=== PATIENT | female | born 1940 | race Two or more races ===

== ENCOUNTER 2023-10-16 12:24 | Outpatient (AMB) | payer MEDICARE, BC, SELFPAY ==
[2023-10-16 12:34] VITALS: BP 132/60; PULSE 48; O2SAT 98; BMI 26.6
--- NOTE | 2023-10-16 12:34 | HO.NEPHOV ---
HPI HPI Comments History of Present Illness Details I had the privilege of seeing Gilma in follow-up of her chronic kidney disease and hypertension. Her blood pressure has been at goal. She has been getting recurrent urinary symptoms but culture negativity. She has not undergone a cystoscopy. She is looking forward to see a urologist. She denies nausea, vomiting, diarrhea, pedal edema, hematuria, fever, chills, rigors, orthopnea or proximal nocturnal dyspnea. She claims to be compliant with her medications, low-sodium diet and good in maintaining hydration. She closely follows up with primary care physician. [facility] Medical History (Updated 10/27/23 @ 22:41 by Darin Lew MD) Hypertension Chronic kidney disease Surgical History (Updated 10/16/23 @ 12:40 by Jyoti Fallon MA) History of ear surgery History of hysterectomy H/O hernia repair Family History (Updated 10/16/23 @ 12:41 by Jyoti Fallon MA) Father Lung cancer Sister Breast cancer Social History (Updated 10/16/23 @ 12:40 by Jyoti Fallon MA) Alcohol intake: never Patient Tobacco Use Status: Former Tobacco user Vital Signs 10/16/23 12:34 Height 4 ft 11 in Weight 131 lb 8 oz BMI 26.6 BP 132/60 Blood Pressure Location Lt brachial Position Sitting Pulse 48 L Pulse Source Pulse Oximeter Pulse Oximetry (%) 98 Oxygen Delivery Method Room Air Physical Exam Vital Signs: Last Vital Signs Pulse 48 L 10/16/23 12:34 BP 132/60 10/16/23 12:34 Pulse Ox 98 10/16/23 12:34 Oxygen Delivery Method Room Air 10/16/23 12:34 BMI result Body Mass Index 26.6 Const General: comfortable and no acute distress Orientation/consciousness: patient oriented x3 HEENT Head: Yes normocephalic Mouth: Normal oral and palatal mucosa present Eyes EOM: EOMs intact bilaterally Neck Neck: Yes supple Resp Auscultation: clear to auscultation bilaterally Cardio Jugular venous distension: no JVD Rate: regular rate GI Palpation (GI): Soft to palpation Auscultation: normal bowel sounds General: Yes no CVA tenderness Back/Spine/Pelvis Back: no CVA tenderness Skin General skin exam: no rashes or lesions noted Neuro General: patient oriented x3 and moves all extremities Extrem General: Yes no pedal edema Assessment & Plan Assessment & Plan (1) Dysuria: Code(s): R30.0 - Dysuria (2) Hyperkalemia: Code(s): E87.5 - Hyperkalemia (3) CKD (chronic kidney disease) stage 3, GFR 30-59 ml/min: Code(s): N18.30 - Chronic kidney disease, stage 3 unspecified Qualifiers: Chronic kidney disease stage 3 subtype: stage 3a (GFR 45-59) Qualified Code(s): N18.31 - Chronic kidney disease, stage 3a (4) Hypertension: Code(s): I10 - Essential (primary) hypertension Qualifiers: Hypertension type: primary hypertension Qualified Code(s): I10 - Essential (primary) hypertension Plan Clear has stage III CKD. 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 She has renal cysts. She has hypertension which is currently well controlled on angiotensin receptor yisel. Her blood pressure has been at goal. She avoids nonsteroidal anti-inflammatory medications, minimize sodium in the diet and maintain good hydration. I did not make any other changes today. Follow-up blood work ordered. She could be a candidate for Jardiance or Farxiga in the future. All questions answered. Follow-up appointment given. Orders: Orders Creatinine 10/16/23 R30.0 - Dysuria, E87.5 - Hyperkalemia, N18.30 - Chronic kidney disease, stage 3 unspecified, I10 - Essential (primary) hypertension Urine Culture 10/16/23 R30.0 - Dysuria, E87.5 - Hyperkalemia, N18.30 - Chronic kidney disease, stage 3 unspecified, I10 - Essential (primary) hypertension Blood Urea Nitrogen 10/16/23 R30.0 - Dysuria, E87.5 - Hyperkalemia, N18.30 - Chronic kidney disease, stage 3 unspecified, I10 - Essential (primary) hypertension Electrolytes 10/16/23 R30.0 - Dysuria, E87.5 - Hyperkalemia, N18.30 - Chronic kidney disease, stage 3 unspecified, I10 - Essential (primary) hypertension Medications: New losartan 50 mg PO DAILY 90 tabs 3RF 90 days Coding Level of Care Code Est Pt Level 4 (21816) Diagnoses Dysuria R30.0 Hyperkalemia E87.5 Stage 3a chronic kidney disease N18.31 Chronic kidney disease stage 3 subtype: stage 3a (GFR 45-59) Primary hypertension I10 Hypertension type: primary hypertension Results Reviewed Nephrology Results: No Data to Display
== END 2023-10-16 13:44 | disposition home or self-care (01) ==
PROVIDERS: PCP Internal Medicine; Visit Provider Internal Medicine Nephrology
DX: R30.0 Dysuria (principal); E87.5 Hyperkalemia; N18.31 Chronic kidney disease, stage 3a; I10 Essential (primary) hypertension
CPT/HCPCS: 99214

== ENCOUNTER → 2023-10-16 12:24 | Outpatient (BNVA) | payer MEDICARE, BC, SELFPAY | PROVIDERS: PCP Internal Medicine; Visit Provider Internal Medicine Nephrology | DX: I12.9 Hypertensive chronic kidney disease with stage 1 through stage 4 chronic kidney disease, or unspecified chronic kidney disease (principal); N18.31 Chronic kidney disease, stage 3a; E78.5 Hyperlipidemia, unspecified; R30.0 Dysuria | CPT/HCPCS: 99212 ==

== ENCOUNTER 2024-03-11 14:11 | Outpatient (AMB) | payer MEDICARE, SELFPAY ==
[2024-03-11 14:20] VITALS: BP 126/50; PULSE 48; O2SAT 98; BMI 26.7
--- NOTE | 2024-03-11 14:20 | HO.NEPHOV_ITS ---
Vital Signs 03/11/24 14:20 Height 4 ft 11 in Weight 132 lb BMI 26.7 BP 126/50 L Blood Pressure Location Rt brachial Position Sitting Pulse 48 L Pulse Source Pulse Oximeter Pulse Oximetry (%) 98 Oxygen Delivery Method Room Air Intake Visit Reasons: 3 Months/ Confirmed Necktie Turner Required: No Accompanied by: Self / Same As Patient Allergies triamcinolone [From Kenalog] Allergy (Verified 03/11/24 14:24) Anaphylaxis HPI Comments Details: I had the privilege of seeing Gilma in follow-up of her chronic kidney disease and hypertension. Her blood pressure has been at goal. She has not undergone a cystoscopy even though she had been having recurrent UTI with culture ne gativity. She denies nausea, vomiting, diarrhea, pedal edema, hematuria, fever, chills, rigors, orthopnea or proximal nocturnal dyspnea. She claims to be compliant with her medications, low-sodium diet and good in maintaining hydration. She recently had incisional hernia repair. She closely follows up with primary care physician. [facility] Medical History (Updated 10/27/23 @ 22:41 by Darin Lew MD) Hypertension Chronic kidney disease Surgical History (Updated 10/16/23 @ 12:40 by Jyoti Fallon MA) History of ear surgery History of hysterectomy H/O hernia repair Family History (Updated 10/16/23 @ 12:41 by Jyoti Fallon MA) Father Lung cancer Sister Breast cancer Social History (Updated 10/16/23 @ 12:40 by Jyoti Fallon MA) Alcohol intake: never Patient Tobacco Use Status: Former Tobacco user Physical Exam Const General: comfortable and no acute distress Orientation/consciousness: patient oriented x3 HEENT Head: Yes normocephalic Mouth: Normal oral and palatal mucosa present Eyes EOM: EOMs intact bilaterally Neck Neck: Yes supple Resp Auscultation: clear to auscultation bilaterally Cardio Jugular venous distension: no JVD Rate: regular rate GI Palpation (GI): Soft to palpation Auscultation: normal bowel sounds General: Yes no CVA tenderness Back/Spine/Pelvis Back: no CVA tenderness Skin General skin exam: no rashes or lesions noted Neuro General: patient oriented x3 and moves all extremities Extrem General: Yes no pedal edema Results Reviewed Nephrology Results: No Data to Display Assessment & Plan Assessment & Plan (1) CKD (chronic kidney disease) stage 3, GFR 30-59 ml/min: Code(s): N18.30 - Chronic kidney disease, stage 3 unspecified Category: Medical Qualifiers: Chronic kidney disease stage 3 subtype: stage 3a (GFR 45-59) Qualified Code(s): N18.31 - Chronic kidney disease, stage 3a (2) Hypertension: Code(s): I10 - Essential (primary) hypertension Category: Medical Qualifiers: Hypertension type: primary hypertension Qualified Code(s): I10 - Essential (primary) hypertension (3) Hyperkalemia: Code(s): E87.5 - Hyperkalemia Category: Medical Plan Gilma has stage III CKD. 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 She has renal cysts. She has hypertension which is currently well controlled on angiotensin receptor yisel. Her blood pressure has been at goal. She avoids nonsteroidal anti-inflammatory medications, minimize sodium in the diet and maintain good hydration. I did not make any other changes today. Follow-up blood work ordered. All questions answered. Follow-up appointment given Orders: Orders Creatinine Today E87.5 - Hyperkalemia, I10 - Essential (primary) hypertension, N18.31 - Chronic kidney disease, stage 3a Parathyroid Hormone Intact Today E87.5 - Hyperkalemia, I10 - Essential (primar y) hypertension, N18.31 - Chronic kidney disease, stage 3a Phosphorus Today E87.5 - Hyperkalemia, I10 - Essential (primary) hypertension, N18.31 - Chronic kidney disease, stage 3a Blood Urea Nitrogen Today E87.5 - Hyperkalemia, I10 - Essential (primary) hypertension, N18.31 - Chronic kidney disease, stage 3a Electrolytes Today E87.5 - Hyperkalemia, I10 - Essential (primary) hypertension, N18.31 - Chronic kidney disease, stage 3a Calcium Today E87.5 - Hyperkalemia, I10 - Essential (primary) hypertension, N18.31 - Chronic kidney disease, stage 3a Coding Level of Care Code Est Pt Level 4 (34558) Diagnoses Stage 3a chronic kidney disease N18.31 Chronic kidney disease stage 3 subtype: stage 3a (GFR 45-59) Primary hypertension I10 Hypertension type: primary hypertension Hyperkalemia E87.5
== END 2024-03-11 14:44 | disposition home or self-care (01) ==
PROVIDERS: PCP Internal Medicine; Visit Provider Internal Medicine Nephrology
DX: N18.31 Chronic kidney disease, stage 3a (principal); I10 Essential (primary) hypertension; E87.5 Hyperkalemia
CPT/HCPCS: 99214

== ENCOUNTER → 2024-03-11 14:11 | Outpatient (BNVA) | payer OTHER, MEDICARE, SELFPAY | PROVIDERS: PCP Internal Medicine; Visit Provider Internal Medicine Nephrology ==

== ENCOUNTER 2024-09-14 11:43 | Outpatient (AMB) | payer MEDICARE, SELFPAY ==
--- NOTE | 2024-09-14 11:52 | HO.NEPHOV ---
Vital Signs 09/14/24 11:53 Height 4 ft 11 in Weight 125 lb 2 oz BMI 25.3 BP 152/58 H Blood Pressure Location Lt brachial Position Sitting Pulse 46 L Pulse Source Pulse Oximeter Pulse Oximetry (%) 98 Oxygen Delivery Method Room Air Intake Visit Reasons: 6 mon follow up-[facility] Track Laying Equipment Operator Required: No Accompanied by: Daughter Allergies triamcinolone [From Kenalog] Allergy (Verified 09/14/24 11:53) Anaphylaxis HPI Comments Details: Gilma was seen in follow-up of her chronic kidney disease and hypertension. Her blood pressure has been at goal. She has not undergone a cystoscopy even though she had been having recurrent UTI with culture negativity. She denies nausea, vomiting, diarrhea, pedal edema, hematuria, fever, chills, rigors, orthopnea or proximal nocturnal dyspnea. She claims to be compliant with her medications, low-sodium diet and good in maintaining hydration. She recently had incisional hernia repair. She closely follows up with primary care physician [facility] Medical History (Updated 10/27/23 @ 22:41 by Darin Lew MD) Hypertension Chronic kidney disease Surgical History History of ear surgery History of hysterectomy H/O hernia repair Family History Father Lung cancer Sister Breast cancer Social History Alcohol intake: never Patient Tobacco Use Status: Former Tobacco user Review of Systems Const All systems reviewed & are unremarkable except as noted in HPI and below Physical Exam Vital Signs: Last Vital Signs Pulse 46 L 09/14/24 11:53 BP 152/58 H 09/14/24 11:53 Pulse Ox 98 09/14/24 11:53 Oxygen Delivery Method Room Air 09/14/24 11:53 BMI result Body Mass Index 25.3 Const General: comfortable and no acute distress Orientation/consciousness: patient oriented x3 HEENT Head: Yes normocephalic Mouth: Normal oral and palatal mucosa present Eyes EOM: EOMs intact bilaterally Neck Neck: Yes supple Resp Auscultation: clear to auscultation bilaterally Cardio Jugular venous distension: no JVD Rate: regular rate GI Palpation (GI): Soft to palpation Auscultation: normal bowel sounds General: Yes no CVA tenderness Back/Spine/Pelvis Back: no CVA tenderness Skin General skin exam: no rashes or lesions noted Neuro General: patient oriented x3 and moves all extremities Extrem General: Yes no pedal edema Results Reviewed Nephrology Results: No Data to Display Assessment & Plan Assessment & Plan (1) CKD (chronic kidney disease) stage 3, GFR 30-59 ml/min: Code(s): N18.30 - Chronic kidney disease, stage 3 unspecified Category: Medical Qualifiers: Chronic kidney disease stage 3 subtype: stage 3a (GFR 45-59) Qualified Code(s): N18.31 - Chronic kidney disease, stage 3a (2) Hypertension: Code(s): I10 - Essential (primary) hypertension Category: Medical Qualifiers: Hypertension type: primary hypertension Qualified Code(s): I10 - Essential (primary) hypertension Plan Gilma has stage III CKD. 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 She has renal cysts. She has hypertension which is currently well controlled on angiotensin receptor yisel. Her blood pressure needs to be kept at goal. She avoids nonsteroidal anti-inflammatory medications, minimize sodium in the diet and maintain good hydration. I did not make any other changes today. Follow-up blood work ordered. All questions answered. Follow-up appointment given Orders: Orders Blood Urea Nitrogen 6 Months I10 - Essential (primary) hypertension, N18.31 - Chronic kidney disease, stage 3a Electrolytes 6 Months I10 - Essential (primary) hypertension, N18.31 - Chronic kidney disease, stage 3a Creatinine 6 Months I10 - Essential (primary) hypertension, N18.31 - Chronic kidney disease, stage 3a Coding Level of Care Code Est Pt Level 4 (11886) Diagnoses Stage 3a chronic kidney disease N18.31 Chronic kidney disease stage 3 subtype: stage 3a (GFR 45-59) Primary hypertension I10 Hypertension type: primary hypertension
[2024-09-14 11:53] VITALS: BP 152/58; PULSE 46; O2SAT 98; BMI 25.3
== END 2024-09-14 12:30 | disposition home or self-care (01) ==
LOC: HO.HKAS 11:43
PROVIDERS: PCP Internal Medicine; Visit Provider Internal Medicine Nephrology
DX: N18.31 Chronic kidney disease, stage 3a (principal); I10 Essential (primary) hypertension
CPT/HCPCS: 99214

== ENCOUNTER → 2024-09-14 11:43 | Outpatient (BNVA) | payer OTHER, MEDICARE, SELFPAY | PROVIDERS: PCP Internal Medicine; Visit Provider Internal Medicine Nephrology ==

== ENCOUNTER 2025-04-12 14:02 | Outpatient (AMB) | payer MEDICARE, SELFPAY ==
--- NOTE | 2025-04-12 14:34 | HO.NEPHOV ---
Vital Signs 04/12/25 14:35 Height 4 ft 11 in Weight 118 lb 4 oz BMI 23.9 BP 140/50 H Blood Pressure Location Rt brachial Position Sitting Pulse 42 L Pulse Source Pulse Oximeter Pulse Oximetry (%) 97 Oxygen Delivery Method Room Air Intake Visit Reasons: 6mon follow up-[facility] Axle Inspector Required: No Accompanied by: Daughter Allergies triamcinolone (From Kenalog) Allergy (Verified 04/12/25 14:35) Anaphylaxis HPI Comments Details: Gilma was seen in follow-up of her chronic kidney disease and hypertension. Her blood pressure has been at goal. She has not undergone a cystoscopy even though she had been having recurrent UTI with culture negativity. She denies nausea, vomiting, diarrhea, pedal edema, hematuria, fever, chills, rigors, orthopnea or proximal nocturnal dyspnea. She claims to be compliant with her medications, low-sodium diet and good in maintaining hydration. She has lost weight [facility] Medical History (Updated 10/27/23 @ 22:41 by Darin Lew MD) Hypertension Chronic kidney disease Surgical History History of ear surgery History of hysterectomy H/O hernia repair Family History Father Lung cancer Sister Breast cancer Social History Alcohol intake: never Patient Tobacco Use Status: Former Tobacco user Review of Systems Const All systems reviewed & are unremarkable except as noted in HPI and below Physical Exam Vital Signs: Last Vital Signs Pulse 42 L 04/12/25 14:35 BP 140/50 H 04/12/25 14:35 Pulse Ox 97 04/12/25 14:35 Oxygen Delivery Method Room Air 04/12/25 14:35 BMI result Body Mass Index 23.9 Const General: comfortable and no acute distress Orientation/consciousness: patient oriented x3 HEENT Head: Yes normocephalic Mouth: Normal oral and palatal mucosa present Eyes EOM: EOMs intact bilaterally Neck Neck: Yes supple Resp Auscultation: clear to auscultation bilaterally Cardio Jugular venous distension: no JVD Rate: regular rate GI Palpation (GI): Soft to palpation Auscultation: normal bowel sounds General: Yes no CVA tenderness Back/Spine/Pelvis Back: no CVA tenderness Skin General skin exam: no rashes or lesions noted Neuro General: patient oriented x3 and moves all extremities Extrem General: Yes no pedal edema Assessment & Plan Assessment & Plan (1) CKD (chronic kidney disease) stage 3, GFR 30-59 ml/min: Code(s): N18.30 - Chronic kidney disease, stage 3 unspecified Category: Medical Qualifiers: Chronic kidney disease stage 3 subtype: stage 3a (GFR 45-59) Qualified Code(s): N18.31 - Chronic kidney disease, stage 3a (2) Hypertension: Code(s): I10 - Essential (primary) hypertension Category: Medical Qualifiers: Hypertension type: primary hypertension Qualified Code(s): I10 - Essential (primary) hypertension Plan Gilma has stage III CKD. 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 She has renal cysts. She has hypertension which is currently well controlled at home on angiotensin receptor yisel. She avoids nonsteroidal anti-inflammatory medications, minimize sodium in the diet and maintain good hydration. I did not make any other changes today. Follow-up blood work ordered. All questions answered. Coding Level of Care Code Est Pt Level 4 (65796) Diagnoses Stage 3a chronic kidney disease N18.31 Chronic kidney disease stage 3 subtype: stage 3a (GFR 45-59) Primary hypertension I10 Hypertension type: primary hypertension
[2025-04-12 14:35] VITALS: BP 140/50; PULSE 42; O2SAT 97; BMI 23.9
--- OUTSIDE RECORDS SUMMARY | 2025-04-12 15:51 | XMS_ITS | Clinical Summary ---
Author Organization [facility] ity Address [address] [place] [address] Care Team Providers Care Director Of Adult Epilepsy Name Role Phone Unavailable Primary Care Provider Unavailabl e Social History Tobacco Use Types Packs/Day Years Used Date Smoking Tobacco: Never Assessed Comments Unknown Sex and Gender Information Value Date Recorded Sex Assigned at Not on file Legal Sex Female 7:16 AM EST Gender Identity Not on file Sexual Orientation Not on file Plan of Treatment Health Maintenance Due Date Last Done Comments DTaP,Tdap,and Td Vaccines (1 - Tdap) 1959 Pneumococcal Vaccine: 50+ Ye ars (1 of 1 - PCV) 1988 Zoster Vaccines (1 of 2) 1988 RSV Immunization Adult Patie nts (1 - 1-dose 75+ series) 2013 COVID-19 Vaccine ( - 2023-2 5 season) 2024 Influenza Vaccine (Season Ended) 2025 HIB Vaccines Aged Out No longer eligi ble based on patient's age to complete this topic HPV Vaccines Aged Out No longer eligi ble based on patient's age to complete this topic Hepatitis A Vaccines Aged Out No long er eligible based on patient's age to complete this topic Hepatitis B Vaccines Aged Out No long er eligible based on patient's age to complete this topic IPV Vaccines Aged Out No longer eligi ble based on patient's age to complete this topic MMR Vaccines Aged Out No longer eligi ble based on patient's age to complete this topic Meningococcal ACWY Vaccine Aged Out N o longer eligible based on patient's age to complete this topic Meningococcal B Vaccine Aged Out No l onger eligible based on patient's age to complete this topic RSV Immunization Patients Un stella 20 months Aged Out No longer eligible b ased on patient's age to complete this topic Varicella Vaccines Aged Out No longer eligible based on patient's age to complete this topic
== END 2025-04-12 14:56 | disposition home or self-care (01) ==
LOC: HO.HKAS 14:04
PROVIDERS: PCP Internal Medicine; Visit Provider Internal Medicine Nephrology
DX: N18.31 Chronic kidney disease, stage 3a (principal); I10 Essential (primary) hypertension
CPT/HCPCS: 99214

== ENCOUNTER → 2025-04-12 14:02 | Outpatient (BNVA) | payer MEDICARE, SELFPAY | PROVIDERS: PCP Internal Medicine; Visit Provider Internal Medicine Nephrology | DX: I12.9 Hypertensive chronic kidney disease with stage 1 through stage 4 chronic kidney disease, or unspecified chronic kidney disease (principal); N18.31 Chronic kidney disease, stage 3a | CPT/HCPCS: 99212 ==